=== PATIENT | male | born 1955 | race Caucasian/White ===

== ENCOUNTER 2017-06-08 09:37 | Day surgery (SDC) | payer MEDICAID ==
[2017-06-08] MEDS ORDERED: ONDANSETRON HCL INJ/PF 4 MG/2 ML SDV ONE (11:27)
[2017-06-08] MEDS ORDERED: DIPHENHYDRAMINE HCL 50 MG/ML VIAL IV PRN (13:17)
[2017-06-08] MEDS ORDERED: PROMETHAZINE HCL INJ 25 MG/1 ML VIAL IV PRN (13:17)
[2017-06-08] MEDS ORDERED: FENTANYL CITRATE INJ/PF 100 MCG/2 ML AMPUL IV PRN ×3 (13:17)
[2017-06-08] MEDS ORDERED: PROPOFOL INJ 200 MG/20 ML VIAL IV ONE ×2 (13:28→14:08)
[2017-06-08] MEDS ORDERED: LIDOCAINE 2% INJ-PF (20 MG/ML) 10 ML AMPUL ONE (13:49)
[2017-06-08] MEDS ORDERED: MIDAZOLAM 2 MG/2 ML INJ ONE (14:08)
[2017-06-08] MEDS ORDERED: FENTANYL CITRATE INJ/PF 100 MCG/2 ML AMPUL ONE (14:08)
[2017-06-08 15:23] VITALS: BP 144/89
--- NOTE | 2017-06-08 19:31 | Operative Report ---
Operative Report DATE OF SURGERY: 06/08/17 Operative Report: The risks, benefits and alternatives of the procedure are explained to the patient in detail the patient is taken to the OR and placed in a left lateral decubital position time out is called Propofol sedation is provided A rectal exam demonstrates a possible rectal mass, no fissures are noted An olympus videoscope is inserted into the patient's rectum the scope is gradually advanced to the cecum prep is reasonbly good photodumentation of the various segments of the colon are obtained the patient does have a redundant colon some diverticulosis is noted a rectal mass is present , biopsies are obtained My concern is that this is a malignancy there was also a polyp that was removed via snare polypectomy the various segments of the colon are evaluated PREOPERATIVE DIAGNOSIS: encounter for colorectal cancer screening POSTOPERATIVE DIAGNOSIS: rectal mass s/p biopsy. sigmoid polyp removed via snare polypectomy. diverticulosis. internal hemorrhoids OPERATION: Colonoscopy with snare polypectoy. colonoscopy with biopsy SURGEON: CARLOS ACEVEDO ANESTHESIA: LMAC TISSUE REMOVED OR ALTERED: as noted above COMPLICATIONS: none ESTIMATED BLOOD LOSS: none INTRAOPERATIVE FINDINGS: as noted above PROCEDURE: Patient tolerated the procedure well no post procedure complications are noted patient is discharged in good condition Discharge date: 06/08/17 discharge diet: regular Discharge activity : normal will wait on pathology My suspicion is for a malignancy, since it is rectal lesion, he will probably need a colostomy bag as there does not appear that it would be possible for an anastomosis however will let surgery decide follow up in office to discuss findings patient to call the office or proceed to the ED if there are any other questions or concerns will need CT scan to evaluate for distant metastasis will refer to surgery, Oncology.
== END 2017-06-08 15:30 | disposition home or self-care (01) ==
LOC: OROUT 09:37
PROVIDERS: ATTEND Internal Medicine Gastroenterology
DX: Z12.11 Encounter for screening for malignant neoplasm of colon (principal); C20 Malignant neoplasm of rectum; D12.5 Benign neoplasm of sigmoid colon; K57.30 Diverticulosis of large intestine without perforation or abscess without bleeding; K64.8 Other hemorrhoids
CPT/HCPCS: 45385; 45380; 88342 ×2; 88341 ×2; 88305 ×2; J2250; J2405; J2704; J3490; J3010

== ENCOUNTER 2017-07-28 09:55 | Day surgery (SDC) | payer MEDICAID ==
[2017-07-27 12:17] LABS: HEMATOCRIT 52.3 % (37.9-51.0); HEMOGLOBIN 18.1 g/dL (13.5-17.0); MEAN CORPUSCULAR HEMOGLOBIN 33.1 pg (27.0-33.4); MEAN CORPUSCULAR HGB CONC 34.7 g/dL (32.0-36.0); MEAN CORPUSCULAR VOLUME 96 fl (80-97); PLATELET COUNT 277 10^3/uL (150-450); RED BLOOD COUNT 5.47 10^6/uL (4.35-5.55); RED CELL DISTRIBUTION WIDTH 14.5 % (11.5-14.0); WHITE BLOOD COUNT 8.2 10^3/uL (4.0-10.5)
--- NOTE | 2017-07-27 14:28 | RADIOLOGY REPORT (SQ) ---
EXAM DESCRIPTION: CHEST PA/LATERAL COMPLETED DATE/TIME: 07/27/2017 1:10 pm REASON FOR STUDY: PRE OP COMPARISON: None. EXAM PARAMETERS: NUMBER OF VIEWS: two views TECHNIQUE: Digital Frontal and Lateral radiographic views of the chest acquired. RADIATION DOSE: NA LIMITATIONS: none FINDINGS: LUNGS AND PLEURA: No opacities, masses or pneumothorax. No pleural effusion. MEDIASTINUM AND HILAR STRUCTURES: No masses or contour abnormalities. HEART AND VASCULAR STRUCTURES: Heart normal size. No evidence for failure. BONES: No acute findings. HARDWARE: None in the chest. OTHER: No other significant finding. IMPRESSION: NO SIGNIFICANT RADIOGRAPHIC FINDING IN THE CHEST. TECHNICAL DOCUMENTATION: JOB ID: [id number] [employer]- All Rights Reserved Reading location - IP/workstation name: [email or web address]
--- NOTE | 2017-07-27 23:29 | EKG REPORT ---
SEVERITY:- NORMAL ECG - SINUS RHYTHM : Confirmed by: Sha Pacheco 27-Jul-2017 23:29:12
[~2017-07-28 09:55] MED LIST: ACETAMINOPHEN 325 MG TABLET PO PRN; CEFAZOLIN 1 GM/D5W RTU 1 GM/50 ML RTUPB IV PRN; LACTATED RINGERS 1000 ML IV PRN; LIDOCAINE 0.5% INJ-PF (5 MG/ML) 50 ML SDV SUBCUT PRN
[2017-07-28] MEDS ORDERED: LIDOCAINE 1%/EPINEPHRINE INJ 20 ML VIAL ONE (10:37)
[2017-07-28] MEDS ORDERED: FENTANYL CITRATE INJ/PF 100 MCG/2 ML AMPUL ONE (11:41)
[2017-07-28] MEDS ORDERED: MIDAZOLAM 2 MG/2 ML INJ ONE ×2 (11:41→12:00)
[2017-07-28] MEDS ORDERED: PROPOFOL INJ 200 MG/20 ML VIAL IV ONE (11:41)
[2017-07-28] MEDS ORDERED: OXYCODONE-ACETAMINOPHEN 5-325 MG TABLET PO PRN ×2 (12:12)
[2017-07-28] MEDS ORDERED: MEPERIDINE HCL/PF INJ 25 MG/1 ML DISP.SYRIN IV PRN (12:12)
[2017-07-28] MEDS ORDERED: DIPHENHYDRAMINE HCL 50 MG/ML VIAL IV PRN (12:12)
[2017-07-28] MEDS ORDERED: PROMETHAZINE HCL INJ 25 MG/1 ML VIAL IV PRN ×2 (12:12)
[2017-07-28] MEDS ORDERED: FENTANYL CITRATE INJ/PF 100 MCG/2 ML AMPUL IV PRN ×3 (12:12)
[2017-07-28] MEDS ORDERED: ONDANSETRON HCL INJ/PF 4 MG/2 ML SDV IV PRN (12:12)
--- NOTE | 2017-07-28 12:41 | Discharge Summary ---
Discharge Summary (SDC) - Discharge Final Diagnosis: Anal carcinoma Date of Surgery: 07/28/17 Discharge Date: 07/28/17 Treatment or Instructions: [facility] Patient to take home medications as per preop; may shower in 48 hours. May use port in 1 week Referrals: BENJAMIN HASSAN PA-C [Primary Care Provider] - Discharge Diet: As Tolerated Discharge Activity: Activity As Tolerated Home Care Assistance: None Needed Report the Following to Your Physician Immediately: Shortness of Breath, Increase in Pain, Fever over 101 Degrees
--- NOTE | 2017-07-28 12:47 | Operative Report ---
Operative Report DATE OF SURGERY: 07/28/17 PREOPERATIVE DIAGNOSIS: Anal carcinoma; severe COPD with hypoxemia POSTOPERATIVE DIAGNOSIS: Same OPERATION: 1. Focused ultrasound of the right neck. 2. Ultrasound directed insertion of right subclavian Zorzky-j-Mpxd catheter into the right internal jugular vein. 3. Interpretation of intraoperative fluoroscopy SURGEON: JANET MANLEY ANESTHESIA: LMAC TISSUE REMOVED OR ALTERED: None COMPLICATIONS: None ESTIMATED BLOOD LOSS: 5 cc INTRAOPERATIVE FINDINGS: See below PROCEDURE: Patient was taken to the preop holding area with the right neck was marked. He was then taken to the operating room where his room air saturations were 90-91% . He was placed on the OR table, arms tucked, head externally rotated to the left side, and the right neck and chest wall prepped and draped sterile fashion. The plan surgical timeout were conducted. The variable frequency linear transducer was used to scan the right neck. The right internal jugular vein was felt to be suitable for cannulation. Skin was anesthetized 1% plain lidocaine. A bradley was made in the skin with 11 blade, and using the micro needle and wire, the right internal jugular vein was accessed. A suitable site for port placement was chosen. The skin was anesthetized with plain lidocaine. Approximately 3 cm incision was made with the knife, underlying pocket developed with electrocautery and blunt dissection. The catheter was then trimmed to the appropriate length, tunneled between the 2 incisions, then attached to the port with the plastic ring. The port was tucked into the right subclavian pocket. Under fluoroscopic guidance, the micro needle was threaded over to a micro introducer sheath needle dilator removed and a conventional 0.030 guidewire was inserted. The dilator introducer sheath, 9 Togolese, threaded under fluoroscopic guidance over the guidewire. Guidewire and removed, and patient took a deep breath or when some air through the introducer sheath. The catheter was threaded into the sheath, the sheath stripped away, leaving the catheter in position. Fluoroscopically the tip of the catheter was in the deep superior vena cava right atrial junction. There is no kinking of the catheter at the neck or at the port site. Of note her catheter insertion, the patient did have desaturations down to the 80s. Patient was hacking and coughing up at this time and in fact coughed up his dentures. Eventually he settled down, and we continued the operation. Was aspirated and flushed with heparinized saline, and wounds closed with 3-0 Vicryl. Steri-Strips applied. Patient tolerated the procedure well and left the operating room with saturations in the mid to low 90s with sternal supplementation. Portable upright chest x-ray to be obtained in the recovery room.
--- NOTE | 2017-07-28 13:15 | RADIOLOGY REPORT (SQ) ---
EXAM DESCRIPTION: CHEST SINGLE VIEW COMPLETED DATE/TIME: 07/28/2017 1:05 pm REASON FOR STUDY: s/p port COMPARISON: Two-view chest 07/27/2017 EXAM PARAMETERS: NUMBER OF VIEWS: One view. TECHNIQUE: Single frontal radiographic view of the chest acquired. RADIATION DOSE: NA LIMITATIONS: None. FINDINGS: LUNGS AND PLEURA: No opacities, masses or pneumothorax. No pleural effusion. MEDIASTINUM AND HILAR STRUCTURES: No masses. Contour normal. HEART AND VASCULAR STRUCTURES: Heart normal in size. Normal vasculature. BONES: No acute findings. HARDWARE: Right-sided permanent central line tip in the superior vena cava. No pneumothorax. OTHER: No other significant finding. IMPRESSION: Right-sided permanent central line tip in the superior vena cava. TECHNICAL DOCUMENTATION: JOB ID: [id number] [employer]- All Rights Reserved Reading location - IP/workstation name: [email or web address]
--- NOTE | 2017-07-28 15:28 | RADIOLOGY REPORT (SQ) ---
EXAM DESCRIPTION: FLUORO/CV PLACEMENT COMPLETED DATE/TIME: 07/28/2017 2:52 pm REASON FOR STUDY: PORTACATH PLCMT RT SIDE ASST WITH FLUORO IN OR C21.1 MALIGNANT NEOPLASM OF ANAL C ANAL COMPARISON: Chest films 07/27/2017 FLUOROSCOPY TIME: 0.2 minutes 8 digital C-arm images images saved to PACS. TECHNIQUE: Intra-operative images acquired during surgical procedure to evaluate progress. NUMBER OF IMAGES: 8 digital C-arm images LIMITATIONS: None. FINDINGS: Intra procedural imaging and fluoro during right-sided permanent central line placement by Dr. Hays in the OR IMPRESSION: Intra procedural imaging and fluoro COMMENT: Quality ID [id number]: Final reports for procedures using fluoroscopy that document radiation exp osure indices, or exposure time and number of fluorographic images (if radiation exposure indices are not available) Please consult full operative report of the attending physician for description of the procedure. TECHNICAL DOCUMENTATION: JOB ID: [id number] [employer]- All Rights Reserved Reading location - IP/workstation name: [email or web address]
[2017-07-28 16:28] VITALS: BP 152/94
== END 2017-07-28 14:00 | disposition home or self-care (01) ==
LOC: OROUT 09:55
PROVIDERS: ATTEND Surgery
PROC: 05HM33Z Insertion of Infusion Device into Right Internal Jugular Vein, Percutaneous Approach (ICD-10-PCS; principal; 2017-07-28 12:00)
DX: C20 Malignant neoplasm of rectum (principal); I73.9 Peripheral vascular disease, unspecified; M54.9 Dorsalgia, unspecified; F17.210 Nicotine dependence, cigarettes, uncomplicated; F10.10 Alcohol abuse, uncomplicated; G62.9 Polyneuropathy, unspecified; D45 Polycythemia vera; N50.89 Other specified disorders of the male genital organs; C21.1 Malignant neoplasm of anal canal; K42.9 Umbilical hernia without obstruction or gangrene; F12.90 Cannabis use, unspecified, uncomplicated; Z79.899 Other long term (current) drug therapy
CPT/HCPCS: 36561; 93005; 36415; 85027; 71046; 71045; 77001; 93010; C1752; C1788; J2250; J0690; J3010; J3490; J2704; J1642; 532